=== PATIENT | female | born 1940 | race Caucasian/White ===

== ENCOUNTER 2022-02-10 09:17 | Outpatient (CLI) | payer MEDICARE, OTHER, SELFPAY ==
--- NOTE | 2022-02-10 09:15 | MR_ITS ---
[address] [address] Phone:?[phone] Fax:?[phone] Referring Physician Information: Gladis Gonsalves [address] [facility] [address] Phone:?[phone] Fax:?[phone] Patient:Rufino Jose D.O.B:?1940 Sex:?Female Phone:?[phone] [facility] MRN:?[id number] Exam Date:?02/10/2022 ? EXAM: MRI of the LEFT KNEE, without contrast CLINICAL: Female, 81 years old, with bilateral knee pain. INDICATION: Evaluate for osteoarthritis versus other knee derangement etiology. PRIOR SURGERY: None reported. PLAIN FILMS: None available. COMPARISONS: No prior MRIs available. An MRI of the contralateral right knee was also performed and reported separately on today's date. TECHNICAL: Using a 1.5 Dahiana MR scanner and a localizing surface coil: 3.0 mm?sagittals: PD, PDFS 3.0 mm?coronals: PD, STIR 3.0 mm?axials: PD, T2FS SEDATION: None. CONTRAST: None. IMPRESSION: 1. Complex tear and irregularity of the lateral meniscus anterior horn. 2. 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 3. Complex tear of the far posterior medial meniscus into posterior root with meniscal peripheral extrusion documenting decreased load-sharing function. 4. Mild medial compartment chondral thinning without full-thickness chondromalacia/defect or subjacent marrow edema. 5. Mucoid degeneration of the anterior cruciate ligament without full-thickness tear. 6. Mild patellofemoral osteoarthritis including incomplete thickness chondral thinning without subjacent reactive marrow edema. 7. Moderate knee effusion and large popliteal cyst. FINDINGS: Knee joint: Effusion: Moderate left knee effusion. Popliteal cyst: Large 6 x 3.5 x 2 slender popliteal cyst. Loose bodies: No convincing discrete larger loose bodies although smaller chondral debris would be difficult to exclude with certainty. Subcutaneous and extra-articular soft tissues: Unremarkable. Ligaments: ACL: Thickening and signal alteration along the length of the anterior cruciate ligament appears in keeping with mucoid degeneration, without convincing defined tear although not excluding the possibility of chronic residua of incomplete sprain injury. PCL: Intact PCL, without acute or chronic injury. MCL: Intact MCL superficial and deep layers, without injury. FCL: Intact FCL, without injury. Posterolateral corner: No posterolateral corner soft tissue injury. Popliteus, biceps femoris, iliotibial band, popliteofibular ligament and lateral gastrocnemius are intact. Posteromedial corner: No posteromedial corner soft tissue injury. Semimembranosus, pes anserine tendons and posterior oblique ligament are without injury, tendinopathy or bursitis. Extensor mechanism: Patellar tendon: Intact, without tendinopathy. Quadriceps tendon: Intact, without tendinopathy. Retinacula: Medial and lateral retinacula are intact. Fat pads: Unremarkable infrapatellar Hoffa's, quadriceps and prefemoral fat pads. Medial compartment: Medial meniscus: Marked attenuation and associated irregularity of the posterior horn of the lateral meniscus in keeping with complex tear and attenuation (sagittal images 9-15; coronal images 22-19). This includes marked attenuation of the posterior root with associated moderate 3 mm peripheral extrusion of the medial meniscus from the medial joint compartment documenting expected associated decreased meniscal load-sharing function (coronal image 17). Medial femoral condyle: Superficial grade II and perhaps more localized grade III chondromalacia/thinning and some irregularity of the central weight-bearing medial femoral condyle is accompanied by slight marginal osteophyte formation but without subjacent reactive marrow edema at this time. Medial tibial plateau: Also some chondral thinning of the posteromedial rim of the medial tibial plateau without subjacent reactive marrow edema. Lateral compartment: Lateral meniscus: Marked degeneration with complex tear and irregularity of the anterior horn of the lateral meniscus (sagittal images 25-16; coronal images 18- 13). Lateral femoral condyle: Smooth-margined chondral thinning of the posterolateral lateral femoral condyle is accompanied by mild marginal osteophyte formation, without subjacent reactive marrow edema. Lateral tibial plateau: Grade III-IV chondromalacia/thinning of the posterior into lateral aspect of rim of the lateral tibial plateau is accompanied by slight marginal osteophyte formation and slight subjacent reactive marrow edema. Patellofemoral joint: Patella: Broad-based grade II and perhaps more localized grade III chondromalacia/thinning with minor irregularity of articular cartilage of much of the patella is not associated with full-thickness chondromalacia/defect or subjacent reactive marrow edema. Trochlea: Also chondral thinning of the central to lateral aspect of the femoral trochlea, with slight marginal osteophyte formation but without subjacent reactive marrow edema. Proximal tibiofibular joint: Slight degenerative change with minimal subjacent marrow edema/subchondral cyst (sagittal PDFS series 6, images 24-26). Bones: No stress/occult fractures or other marrow edema/pathology. Neurovascular: Popliteal artery: No demonstrable popliteal artery entrapment or predisposing gastrocnemius variant. No aneurysm or pseudoaneurysm. Popliteal vein: No fusiform or saccular venous aneurysm. Anterior tibial artery: No aberrant high-origin anterior tibial artery. Tibial nerve: No entrapment or distal edema/swelling at the soleal sling. Popliteal nerve: No intrinsic or extrinsic mass or edema/swelling. Common peroneal nerve: Normal to fibular head and neck level included. F Electronically signed on 02/11/2022 12:02:00 PM by Manuel Sears M.D.
--- NOTE | 2022-02-10 09:15 | MR_ITS ---
[address] [address] Phone:?[phone] Fax:?[phone] Referring Physician Information: Gladis Gonsalves [address] [facility] [address] Phone:?[phone] Fax:?[phone] Patient:?Ashley Jose D.O.B:?1940 Sex:?Female Phone:?[phone] [facility] MRN:?[id number] Exam Date:?02/10/2022 ? EXAM: MRI of the RIGHT KNEE, without contrast CLINICAL: Female, 81 years old, with right knee pain. INDICATION: Evaluate for osteoarthritis versus other knee derangement etiology. PRIOR SURGERY: None reported. PLAIN FILMS: None available. COMPARISONS: No prior MRIs available. An MRI of the contralateral left knee was also performed and reported separately today's date. TECHNICAL: Using a 1.5 Dahiana MR scanner and a localizing surface coil: 3.0 mm?sagittals: PD, PDFS 3.0 mm?coronals: PD, STIR 3.0 mm?axials: PD, T2FS SEDATION: None. CONTRAST: None. IMPRESSION: 1. Complex tear/irregularity and marked peripheral extrusion of the medial meniscus. 2. Mild towards moderate medial compartment chondromalacia/osteoarthritis without subjacent marrow edema. 3. Complex degeneration and irregularity/tear of the lateral meniscus especially its anterior one-half with expected decreased meniscal load-sharing function. 4. Mild towards moderate lateral compartment chondromalacia/osteoarthritis without subjacent reactive marrow edema at this time. 5. Mild towards moderate patellofemoral chondromalacia/degenerative change, without subjacent reactive marrow edema. 6. Mucoid degeneration of the anterior cruciate ligament although not excluding residua of incomplete sprain injury, without complete tear. 7. Large knee effusion. FINDINGS: Knee joint: Effusion: Large right knee effusion. Popliteal cyst: None. Loose bodies: No convincing discrete larger loose bodies although smaller debris would be difficult to exclude with certainty. Subcutaneous and extra-articular soft tissues: Unremarkable. Ligaments: ACL: Abnormal increased signal intensity extends along the length of the anterior cruciate ligament appearing most in keeping with mucoid degeneration although not excluding the possibility of residua of incomplete sprain injury. No complete ACL tear. PCL: Intact PCL, without acute or chronic injury. MCL: Intact MCL superficial and deep layers, without injury. FCL: Intact FCL, without injury. Posterolateral corner: No posterolateral corner soft tissue injury. Popliteus, biceps femoris, iliotibial band, popliteofibular ligament and lateral gastrocnemius are intact. Posteromedial corner: No posteromedial corner soft tissue injury. Semimembranosus, pes anserine tendons and posterior oblique ligament are without injury, tendinopathy or bursitis. Extensor mechanism: Patellar tendon: Intact, without tendinopathy. Quadriceps tendon: Intact, without tendinopathy. Retinacula: Medial and lateral retinacula are intact. Fat pads: Unremarkable infrapatellar Hoffa's, quadriceps and prefemoral fat pads. Medial compartment: Medial meniscus: The posterior third towards one-half of the medial meniscus is associated with marked degeneration and deformity consistent with irregularity/tear as well as some attenuation which appears to be due to displacement of unstable meniscal flap into the inferior meniscosynovial recess at the anterior extent of this tear peripheral to its middle third (sagittal images 26-19; coronal images 23-19). This complex tear and attenuation of the medial meniscus posterior horn extends into the posterior meniscal root which, along with the appearance of marked 5 mm peripheral extrusion of the medial meniscus from the medial joint compartment is expected to be associated with decreased meniscal load-sharing function (coronal image 19). Medial femoral condyle: Grade II-III chondromalacia/thinning of the central to medial aspect of the medial femoral condyle is accompanied by mild towards moderate marginal osteophyte formation, but without subjacent reactive marrow edema at this time. Medial tibial plateau: Less prominent chondral thinning of the posteromedial rim of the medial tibial plateau, with slight marginal osteophyte formation, without subjacent reactive marrow edema. Lateral compartment: Lateral meniscus: Complex tear of apex and adjacent superior greater than inferior surfaces of the anterior one-half of the lateral meniscus (sagittal images 14-8; coronal images 19-14). Moderate 3 mm peripheral extrusion of the medial meniscus from the medial joint compartment (coronal image 19). Lateral femoral condyle: Chondral thinning of the anterolateral lateral femoral condyle associated with mild marginal osteophyte formation, without subjacent reactive marrow edema. Lateral tibial plateau: Grade II-III chondromalacia/thinning of the lateral rim of the lateral tibial plateau is not associated with subjacent reactive marrow edema. Patellofemoral joint: Patella: Broad-based grade II and more localized areas of grade III chondromalacia/thinning of much of patella, especially median ridge and medial facet greater than adjacent lateral facet, without convincing well-defined full- thickness chondromalacia/defect or subjacent reactive marrow edema. Trochlea: No chondromalacia or osteochondral abnormality. Proximal tibiofibular joint: Unremarkable, without evidence of ligament sprain injury, joint effusion or adjacent marrow edema. Bones: No stress/occult fractures or other marrow edema/pathology. Neurovascular: Popliteal artery: No demonstrable popliteal artery entrapment or predisposing gastrocnemius variant. No aneurysm or pseudoaneurysm. Popliteal vein: No fusiform or saccular venous aneurysm. Anterior tibial artery: No aberrant high-origin anterior tibial artery. Tibial nerve: No entrapment or distal edema/swelling at the soleal sling. Popliteal nerve: No intrinsic or extrinsic mass or edema/swelling. Common peroneal nerve: Normal to fibular head and neck level included. [facility] Electronically signed on 02/11/2022 12:19:00 PM by Manuel Sears M.D.
--- NOTE | 2022-02-10 10:00 | MR_ITS ---
[address] [address] Phone:?[phone] Fax:?[phone] Referring Physician Information: Gladis Gonsalves [address] [facility] [address] Phone:?[phone] Fax:?[phone] Patient:?Ashley Jose D.O.B:?1940 Sex:?Female Phone:?[phone] [facility] MRN:?[id number] Exam Date:?02/10/2022 ? EXAM: MRI of the RIGHT KNEE, without contrast CLINICAL: Female, 81 years old, with right knee pain. INDICATION: Evaluate for osteoarthritis versus other knee derangement etiology. PRIOR SURGERY: None reported. PLAIN FILMS: None available. COMPARISONS: No prior MRIs available. An MRI of the contralateral left knee was also performed and reported separately today's date. TECHNICAL: Using a 1.5 Dahiana MR scanner and a localizing surface coil: 3.0 mm?sagittals: PD, PDFS 3.0 mm?coronals: PD, STIR 3.0 mm?axials: PD, T2FS SEDATION: None. CONTRAST: None. IMPRESSION: 1. Complex tear/irregularity and marked peripheral extrusion of the medial meniscus. 2. Mild towards moderate medial compartment chondromalacia/osteoarthritis without subjacent marrow edema. 3. Complex degeneration and irregularity/tear of the lateral meniscus especially its anterior one-half with expected decreased meniscal load-sharing function. 4. Mild towards moderate lateral compartment chondromalacia/osteoarthritis without subjacent reactive marrow edema at this time. 5. Mild towards moderate patellofemoral chondromalacia/degenerative change, without subjacent reactive marrow edema. 6. Mucoid degeneration of the anterior cruciate ligament although not excluding residua of incomplete sprain injury, without complete tear. 7. Large knee effusion. FINDINGS: Knee joint: Effusion: Large right knee effusion. Popliteal cyst: None. Loose bodies: No convincing discrete larger loose bodies although smaller debris would be difficult to exclude with certainty. Subcutaneous and extra-articular soft tissues: Unremarkable. Ligaments: ACL: Abnormal increased signal intensity extends along the length of the anterior cruciate ligament appearing most in keeping with mucoid degeneration although not excluding the possibility of residua of incomplete sprain injury. No complete ACL tear. PCL: Intact PCL, without acute or chronic injury. MCL: Intact MCL superficial and deep layers, without injury. FCL: Intact FCL, without injury. Posterolateral corner: No posterolateral corner soft tissue injury. Popliteus, biceps femoris, iliotibial band, popliteofibular ligament and lateral gastrocnemius are intact. Posteromedial corner: No posteromedial corner soft tissue injury. Semimembranosus, pes anserine tendons and posterior oblique ligament are without injury, tendinopathy or bursitis. Extensor mechanism: Patellar tendon: Intact, without tendinopathy. Quadriceps tendon: Intact, without tendinopathy. Retinacula: Medial and lateral retinacula are intact. Fat pads: Unremarkable infrapatellar Hoffa's, quadriceps and prefemoral fat pads. Medial compartment: Medial meniscus: The posterior third towards one-half of the medial meniscus is associated with marked degeneration and deformity consistent with irregularity/tear as well as some attenuation which appears to be due to displacement of unstable meniscal flap into the inferior meniscosynovial recess at the anterior extent of this tear peripheral to its middle third (sagittal images 26-19; coronal images 23-19). This complex tear and attenuation of the medial meniscus posterior horn extends into the posterior meniscal root which, along with the appearance of marked 5 mm peripheral extrusion of the medial meniscus from the medial joint compartment is expected to be associated with decreased meniscal load-sharing function (coronal image 19). Medial femoral condyle: Grade II-III chondromalacia/thinning of the central to medial aspect of the medial femoral condyle is accompanied by mild towards moderate marginal osteophyte formation, but without subjacent reactive marrow edema at this time. Medial tibial plateau: Less prominent chondral thinning of the posteromedial rim of the medial tibial plateau, with slight marginal osteophyte formation, without subjacent reactive marrow edema. Lateral compartment: Lateral meniscus: Complex tear of apex and adjacent superior greater than inferior surfaces of the anterior one-half of the lateral meniscus (sagittal images 14-8; coronal images 19-14). Moderate 3 mm peripheral extrusion of the medial meniscus from the medial joint compartment (coronal image 19). Lateral femoral condyle: Chondral thinning of the anterolateral lateral femoral condyle associated with mild marginal osteophyte formation, without subjacent reactive marrow edema. Lateral tibial plateau: Grade II-III chondromalacia/thinning of the lateral rim of the lateral tibial plateau is not associated with subjacent reactive marrow edema. Patellofemoral joint: Patella: Broad-based grade II and more localized areas of grade III chondromalacia/thinning of much of patella, especially median ridge and medial facet greater than adjacent lateral facet, without convincing well-defined full- thickness chondromalacia/defect or subjacent reactive marrow edema. Trochlea: No chondromalacia or osteochondral abnormality. Proximal tibiofibular joint: Unremarkable, without evidence of ligament sprain injury, joint effusion or adjacent marrow edema. Bones: No stress/occult fractures or other marrow edema/pathology. Neurovascular: Popliteal artery: No demonstrable popliteal artery entrapment or predisposing gastrocnemius variant. No aneurysm or pseudoaneurysm. Popliteal vein: No fusiform or saccular venous aneurysm. Anterior tibial artery: No aberrant high-origin anterior tibial artery. Tibial nerve: No entrapment or distal edema/swelling at the soleal sling. Popliteal nerve: No intrinsic or extrinsic mass or edema/swelling. Common peroneal nerve: Normal to fibular head and neck level included. [facility] Electronically signed on 02/11/2022 12:19:00 PM by Manuel Sears M.D.
== END 2022-02-10 09:18 | disposition home or self-care (01) ==
PROVIDERS: PCP Family Medicine; Visit Provider Physician Assistant
DX: M25.561 Pain in right knee (principal); M25.562 Pain in left knee; M17.0 Bilateral primary osteoarthritis of knee; M23.242 Derangement of anterior horn of lateral meniscus due to old tear or injury, left knee; M94.262 Chondromalacia, left knee; M23.222 Derangement of posterior horn of medial meniscus due to old tear or injury, left knee; M25.462 Effusion, left knee; M25.461 Effusion, right knee; S83.241A Other tear of medial meniscus, current injury, right knee, initial encounter; M94.261 Chondromalacia, right knee; S83.511A Sprain of anterior cruciate ligament of right knee, initial encounter
CPT/HCPCS: 73721

== ENCOUNTER 2022-12-26 12:10 | Outpatient (CLI) | payer MEDICARE, OTHER, SELFPAY | END 2022-12-26 12:11 | disposition home or self-care (01) | LOC: RAD 12:11 → INJ CL 12:29 | PROVIDERS: PCP Family Medicine; Visit Provider Family Medicine | DX: M51.36 Other intervertebral disc degeneration, lumbar region (principal); M54.16 Radiculopathy, lumbar region | CPT/HCPCS: 62323; J0702; Q9966 ==

== ENCOUNTER 2023-02-06 12:25 | Outpatient (CLI) | payer MEDICARE, OTHER, SELFPAY | END 2023-02-06 12:26 | disposition home or self-care (01) | LOC: INJ CL 12:27 | PROVIDERS: PCP Family Medicine; Visit Provider Family Medicine | DX: M54.16 Radiculopathy, lumbar region (principal); M51.36 Other intervertebral disc degeneration, lumbar region | CPT/HCPCS: 64483; J1100; Q9966 ==

== ENCOUNTER 2024-05-13 07:47 | Outpatient (CLI) | payer MEDICARE, OTHER, SELFPAY ==
--- OUTSIDE RECORDS SUMMARY | 2024-05-13 07:50 | XMS_ITS ---
Author Organization [facility] Address [address] [place] [address] Care Team Providers Care Director Of Financial Aid Name Role Phone Unavailable Unavailable Unavailable Surgery Details Not on file Complications Check Surgery Details section. Procedure Estimated Blood Loss Check Surgery Details section. Procedure Findings Check Surgery Details section. Procedure Specimens Taken Check Surgery Details section.
--- OUTSIDE RECORDS SUMMARY | 2024-05-13 07:50 | XMS_ITS | Encounter Summary ---
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 [address] [place] [phone] Phone: tel: fax: [facility] Region Referral ID Status Reason Start Date Expiration Date V isits Requested Visits Authorized [id number] Authorized 03/21/2024 09/20/2025 1 1 Scheduling Instructions Dry eye and refraction Reason for Visit * Outpatient (Routine) - Closed Specialty Diagnoses / Procedures Referred By Donald moyer Referred To Contact Ophthalmology Erasmo Encinas M.D. [address], [place] [address] Phone: tel: fax: [facility] Region Referral ID Status Reason Start Date Expiration Date Visits Re quested Visits Authorized [id number] Closed 01/04/2024 07/05/2025 1 1 Encounter Details Date Type Department Care Team (Latest Contact Info) Description 03/21/2024 1:00 PM CDT Office Visit Department of Ophthalmology in [place], [place] [address] [place] [address] Erasmo Encinas M.D. [address], [place] [address] Kane Jones Jr., M.D. [address] [place] [address] Dry Eye Syndrome Bilateral (Primary Dx); Intraocular Lens Implant Status Post Social History Tobacco Use Types Packs/Day Years Used Date Smoking Tobacco: Never Smokeless Tobacco: Never [facility] Trapmineities Answer Date Recorded In the past 12 months has th e electric, gas, oil, or water company threatened to shut off services in your home? No 10/23/2023 Social Connection and Isolat ion Panel [NHANES] Answer Date Recorded In a typical week, how many times do you talk on the phone with family, friends, or neighbors? More than three times a week 04/29/2022 How often do you get togethe r with friends or relatives? More than three times a week 04/29/2022 How often do you attend [facility] ch or jewish services? More than 4 times per year 04/29/2022 Active Member of Clubs or Organizations Not on f ile 04/29/2022 How often do you attend meet ings of the clubs or organizations you belong to? More than 4 times per year 04/29/2022 Are you , , di vorced, , never , or living with a partner? 04/29/2022 AUDIT-C Answer Date Recorded Q1: How often do you have a drink containing alc ohol? Monthly or less 04/29/2022 Q2: How many drinks containi ng alcohol do you have on a typical day when you are drinking? 1 or 2 04/29/2022 Frequency of Binge Drinking Not on file 04/15 Overall Financial Resource Strain (CARDIA) Answe r Date Recorded How hard is it for you to pa y for the very basics like food, housing, medical care, and heating? Patient declined 12/30/2020 [facility] - Occupational Stress Questionnaire Answer Date Recorded Do you feel stress - tense, restless, nervous, or anxious, or unable to sleep at night because your mind is troubled all the time - these days? Not at all 04/29/2022 Exercise Vital Sign Answer Date Recorde d On average, how many days pe r week do you engage in moderate to strenuous exercise (like a brisk walk)? 2 days 10/23/2023 On average, how many minutes do you engage in exercise at this level? 30 min 10/23/2023 Hunger Vital Sign Answer Date Recorded Within the past 12 months, y ou worried that your food would run out before you got the money to buy more. Never true 10/23/19 24 Within the past 12 months, t he food you bought just didn't last and you didn't have money to get more. Never true 10/23/2023 PRAPARE - Transportation Answer Date Re corded In the past 12 months, has l ack of transportation kept you from medical appointments or from getting medications? No 03/2024 In the past 12 months, has l ack of transportation kept you from meetings, work, or from getting things needed for daily living? No 10/23/2023 Nutrition Answer Date Recorded Nutrition: EVOO Fat Source Yes 10/22 On average, how many serving s of fruits and vegetables do you eat per day (serving size is equal to 1 cup or approximately the size of a tennis ball)? 0-2 10/23/2023 Dental Answer Date Recorded Dental: Regular Dentist Yes 07/16/19 Employment Answer Date Recorded Employment status Retired 10/23/2023 Housing Stability Answer Date Recorded What is your living situation today? I have a [facility] place to live 10/23/2023 Education Answer Date Recorded What is the highest level of school you have completed or the highest degree you have received? 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 - 03/21/2024 1:00 PM CDT Ashley Jose was seen today for No chief complaint on file. 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 [address] [phone] Scheduled Referrals Name Type Priority Associated Diagnoses Order Schedule Ophthalmology office visit (clinic) Outpatient Referral Routine Expected: 06/20/2024, Expires: 06/20/2025 documented as of this encounter Visit Diagnoses Diagnosis Dry Eye Syndrome Bilateral- Primary Intraocular Lens Implant Status Post documented in this encounter
--- OUTSIDE RECORDS SUMMARY | 2024-05-13 07:50 | XMS_ITS | Clinical Summary ---
Author Organization [facility] Address [address] [place] [address] Care Team Providers Care Front Office Director Name Role Phone Unavailable Primary Care Provider Unavailabl e Source Comments Patient records contain information from all sites at [facility]. For routine questions regarding patient records, call [phone] during business hours, M-F 8:00 AM - 5:00 PM Central Time. Record requests for emergency care only can be directed to [phone] at any time.[facility] Allergies Active Allergy Reactions Criticality Noted Date Comments Codeine Other (see comments) 11/20/2006 Stomach spasms Medications * This document contains information received from the source organization and may not represent a complete record from that organization. polyethylene glycol 400 (BLINK GEL TEARS OPHT) Administer 1 drop into both eyes at bedtime. Active aspirin (Hester Aspirin) [address] tablet Take by mouth. Active calcium carbonate/vitam in D3 (CALCIUM 600 + D,3, ORAL) Take by mouth. Activ e docosahexaenoic acid/epa (FISH OIL ORAL) Take by mouth. Activ e atenoloL (TENORMIN) 50 mg tablet Take 1 tablet by mouth 2 (two) times a day. 1 Active esomeprazole (NexIUM) [address] capsule Take 1 capsule by mouth 2 (two) times a day. 3 Active cholecalciferol , vitamin D3, 25 mcg (1,000 unit) tablet,chewable 1,000 Units. A ctive flaxseed oiL oil 1 tablet po once daily 8 Active glucosamine-cho ndroitin (GLUCOSAMINE-CH ONDROITIN) 500-400 mg per capsule Take 1 capsule by mouth 2 (two) times a day. 3 Active hydroCHLOROthia zide (HYDRODIURIL) 25 mg tablet Take 2 tablets by mouth daily. 1 Active lisinopriL (PRINIVIL,ZESTR IL) 20 mg tablet Take 1 tablet by mouth 2 (two) times a day. 1 Active miscellaneous medical supply [facility] CPAP machine for home use at pressure 10cm/H2O, nasal mask x1/3month with nasal pillows x 2/mo 0 Active TURMERIC ORAL Take 1 tablet by mouth daily. Active vit C,G-Gw-kxhya-katerine tein-zeaxan (PreserVision AREDS-2) 250-90-40-1 mg per capsule Take 1 capsule by mouth 2 (two) times a day. Active lifitegrast (Xiidra) 5 % ophthalmic solution Administer 1 drop into both eyes 2 (two) times a day. 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 Kane Jones Jr., M.D. Dry Eye Syndrome Bilateral (Primary Dx); Intraocular Lens Implant Status Post from Last 3 Months Immunizations Name Administration Dates Next Due H1N1 All Forms 07/29/2009 HZV (ZOSTAVAX) 01/30/2007 Influenza, Unspecified 04/20/2009,2007,05/07/2007,06/05/2006, 5,05/11/2004,05/06/2003 PPSV23 05/11/2004 Td (Adult), adsorbed 04/09/2008 Social History Tobacco Use Types Packs/Day Years Used Date Smoking Tobacco: Never Smokeless Tobacco: Never [facility] Utilities Answer Date Recorded In the past 12 [...] week 04/29/2022 How often do you attend chur ch or restoration services? More than 4 times per year [...] medical care, and heating? Patient declined 12/30/2020 [facility] - Occupational Stress Questionnaire Answer Date Recorded [...] your living situation today? I have a [facility] place to live 10/23/2023 Education Answer Date Recorded What is the highest level of school you have completed or the highest degree you have received? Some college, no degree 12/30/2020 Comments No Sex and Gender Information Value Date Recorded Sex Assigned at Female 04/29/2022 11:09 AM CDT Legal Sex Female 9:08 AM STEWARD RACETRACK Gender Identity Female 04/29/2022 11:09 AM CDT Sexual Orientation Not on file Last Filed Vital Signs Vital Sign Reading Time Taken Comments Blood Pressure 130/80 06/01/2021 2:26 PM STEWARD RACETRACK Pulse - - Temperature - - Respiratory Rate - - Oxygen Saturation - - Inhaled Oxygen Concentration - - Weight 80.4 kg (177 lb 5.8 oz) 06/01/2021 2:26 P M STEWARD RACETRACK Height 160 cm (5' 3) 12/30/2020 9:13 AM CDT Body Mass Index 31.42 12/30/2020 9:13 AM CDT Plan of Treatment Upcoming Encounters Date Type Department Care Team (Late st Contact Info) Description 06/17/2024 11:15 AM STEWARD RACETRACK Office Visit Department of Ophthalmology in [place], [place] [address] [place] [address] Kane Jones Jr., M.D. [address] [place] [phone] Health Maintenance Due Date Last Done Comments Office Visit for Blood Pressure Check / Re-check 1942 RSV vaccine - (32-36 weeks) or 60+ years (1 - 1-dose 75+ series) 2017 DTaP,Tdap,and Td Vaccines (2 - Td or Tdap) 04/23/2022 04/23/2012, 04/09/2008 Depression Screening (Annual PHQ-2) 07/16/2023 Fall Risk Screen (Annual) 07/16/2023 COVID-19 Vaccine ( season) 2024 05/17/2022, 10/25/2021, 04/19/2021, Additional history exists Influenza Vaccine (#1) 2024 , 05/05/2022, 04/07/2021, Additional history exists Creatinine Level (Kidney Function Test) 09/19/2024 09/20/2023, 08/17/2023, 06/11/2023, Additional history exists Potassium Level 09/19/2024 09/20/2023, 020 08/2023, 06/11/2023, Additional history exists Sodium Level 09/19/2024 09/20/2023, 02/0 08/2023, 06/11/2023, Additional history exists Zoster Vaccines Completed 01/02/2019, 040 11/2018, 01/30/2007 Pneumococcal vaccine (65+ years) Completed 11/03/2021, 07/26/2015, 05/11/2004, Additional history exists HPV Vaccines Aged Out No longer eligi ble based on patient's age to complete this topic Insurance ([place]) [id number] [address] [id number] MEDICARE [facility]
--- OUTSIDE RECORDS SUMMARY | 2024-05-13 07:50 | XMS_ITS | Encounter Summary ---
Author Organization [facility] Address [address] [place] [address] Care Team Providers Care Parks And Recreation Worker Name Role Phone Unavailable Primary Care Provider Unavailabl e Encounter Details Date Type Department Care Team (Late st Contact Info) Description 02/05/2024 Orders Only Department of Ophthalmology in [place], [place] [address] [address] Kane Jones Jr., M.D. [address], [place] [address] Social History Tobacco Use Types Packs/Day Years Used Date Smoking Tobacco: Never Smokeless Tobacco: Never C Utilities Answer Date Recorded In the past 12 months has e electric, gas, oil, or water company [...] often do you attend chur ch or rastafari services? More than 4 times per year [...] medical care, and heating? Patient declined 12/30/2020 [facility] - Occupational Stress [...] your living situation today? I have a [facility] place to live 10/23/2023 Education Answer Date Recorded What is the highest level of school you have completed or the highest degree you have received? Some college, no degree 12/30/2020 Comments No Sex and Gender Information Value Date Recorded Sex Assigned at Female 04/29/2022 11:09 AM CDT Legal Sex Female 9:08 AM COOKER OPERATOR Gender Identity Female 04/29/2022 11:09 AM CDT Sexual Orientation Not on file documented as of this encounter Plan of Treatment Upcoming Encounters Date Type Department Care Team (Late st Contact Info) Description 06/17/2024 11:15 AM COOKER OPERATOR Office Visit Department of Ophthalmology in [place], [place] [address] [phone] Kane Jones Jr., M.D. [address] [place] [phone] documented as of this encounter Visit Diagnoses Not on filedocumented in this encounter
--- OUTSIDE RECORDS SUMMARY | 2024-05-13 07:50 | XMS_ITS | Continuity of Care Document ---
Author Organization [facility] Address [address] [place] [address] Phone Care Team Providers Care Asthma Educator Name Role Phone Dianne MOYA, PhD, Tomas Unavailable Unavai lable Allergies, Adverse Reactions, Alerts Substance Reaction Status Criticality codeine Active No Information Medications Medication Instructions Dosage Effective Dates (start - stop) Status Comments ATENOLOL (unknown strength) Not Available - Active AMILORIDE HCL (unknown strength) Not Available - Active ESOMEPRAZOLE MAGNESIUM (unknown strength) Not Available - Active LISINOPRIL (unknown strength) Not Available - Active XIIDRA (unknown strength) Not Available - Active Procedures Procedure Date Postop Followup Visit Lami, Facetectomy/Foraminotomy, Lumbar ( Stenosis) Lami, Facetectomy/Foraminotomy - Additio nal Level(s) - MI Lami, Facetectomy/Foraminotomy, Lumbar ( Stenosis) Lami, Facetectomy/Foraminotomy - Additio nal Level(s) Office/Outpatient Visit,[facility] 2022 Advance Directives Directive Yes / No Effective Date File Name No Information Encounters Encounter Description Practice Location Reason(s) For Visit Diagnoses Date Provider Providers Copied on Encounter [facility], [address], [place], [id number], [place] tel:[phone] [facility] No Information 4 Dianne Marin. [facility], [address] [facility] [address], [place], [address], [place]. tel:[phone] [facility], [address], [place], [place], [id number], [place] tel:[phone] [facility] [place] Spinal stenosis, lumbar region with neurogenic claudication 3 Dianne Marin. [facility], [address], [place], [address], [place]. [phone] Referring Provider: [facility], [place], [address]. tel:[phone] [facility], [address], [place], [place], [id number], [place] tel:[phone] [facility] No Information Sep-2 3 Kaleb Alexis. [facility], [address], [place], [place], [id number] , [place]. [phone] Referring Provider: Luis [facility], [place], [address]. tel:[phone] [facility], [address], [place], [place], [id number], [place] tel:[phone] [facility] No Information Sep-2 3 Dianne Marin. [facility], [address], [place], [address], [place]. tel:[phone] Referring Provider: Landon Moran [employer] Alexsandra Mo , [place], [address]. tel:[phone] Office/Outpat ient Visit,[place], [place] [facility], [address], [place], [place], [id number], [place] tel:[phone] [facility] [place] Spinal stenosis, lumbar region with neurogenic claudication 3 Kaleb Alexis. [facility], [address], [place], [place], [id number] , [place]. tel:[phone] Referring Provider: Luis Moran[address], [place], [address]. tel:[phone] Family History Family Member Type Diagnosis Age At Onset No Information Payers Payer name Insurance type Covered democrat ID Ricky duque(s) Medicare MB [id number] [facility] [id number] Social History Type Description Quantity Date Captured Comments Sex Female Smoking Status No Information Chief Complaint And Reason For Visit No Information Reason For Referral Reason For Referral No Information History Of Present Illness Encounter Date Complaint History Of Prese nt Illness No Information Functional Status Date Functional Assessmen t No Information Instructions Date Instruction Additional Infor mation No Information Assessments Type Assessment Date No Information Patient Care Teams Name Effective Dates (start - stop) Status Members No Information
--- OUTSIDE RECORDS SUMMARY | 2024-05-13 07:50 | XMS_ITS | Clinical Summary ---
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 0 Active FLAXSEED OIL As directed 1 Tablet once daily. 0 08/12/2007 Active glucosamine-chondr oitin, 500-400 mg, (COSAMIN DS 500/400) 500-400 mg cap Take 1 capsule by mouth 2 times daily. 1 capsule 0 11/05/2012 Active Cholecalciferol, Vitamin D3, (VITAMIN D-3) 1,000 unit chew Chew 1,000 units by mouth once daily. Active TURMERIC ORAL Take 1 Tablet by mouth once daily. Active lifitegrast (Xiidra) 5 % dpet Place 1 Drop into both eyes once daily. 03/28/2017 Active vitamins A,C,I-gdrq-rxmmmp (ICaps AREDS) 7,160-113-100 ipfc-al-mzek TbEC Take 2 Tablets by mouth once daily. 0 05/12/2021 Active acetaminophen (TYLENOL EXTRA STRGTH) 500 mg tabletIndications: Spinal stenosis, lumbar region, with neurogenic claudication Take 1-2 Tablets (500-1,000 mg) by mouth every 6 hours if needed for Pain. Max acetaminophen dose: 4000mg in 24 hrs. 40 Tablet 04/07/2023 Active ibuprofen (ADVIL; MOTRIN) 600 mg tabletIndications: Spinal stenosis, lumbar region, with neurogenic claudication Take 1 Tablet (600 mg) by mouth every 6 hours if needed for Pain. Maximum of 3200 mg in 24 hours. 25 Tablet 04/07/2023 Active CPAPIndications:OS A (obstructive sleep apnea) CPAP machine for home use at pressure 10cm/H2O, nasal mask x1/3month with nasal pillows x 2/mo 1 Each 11 08/21/2023 Active atenoloL (TENORMIN) 50 mg tabletIndications: Essential hypertension Take 1 Tablet (50 mg) by mouth two times daily. 180 Tablet 4 08/23/2023 Active hydroCHLOROthiazid e (HCTZ) 25 mg tabletIndications: Essential hypertension Take 2 Tablets (50 mg) by mouth once daily. 180 Tablet 3 08/23/2023 Active lisinopriL (PRINIVIL; ZESTRIL) 20 mg tabletIndications: HTN (hypertension) Take 1 Tablet (20 mg) by mouth two times daily. 180 Tablet 3 08/23/2023 Active spironolactone (ALDACTONE) 25 mg tabletIndications: HTN (hypertension) Take 1 Tablet (25 mg) by mouth every morning. 90 Tablet 3 08/23/2023 Active esomeprazole (NEXIUM) 40 mg capsuleIndications :Chronic GERD Take 1 Capsule (40 mg) by mouth once daily. 90 Capsule 3 09/04/2023 Active Hospital, Clinic, or Other Facility Administered Medication Ordered Dose Route Frequency Start Date End Date Status betamethasone acet,sod phos 6 mg injection (CELESTONE SOLUSPAN)Indications:Prima ry osteoarthritis of left knee,Primary osteoarthritis of right knee,Tripathi's cyst of knee, left 6 mg IArtic ONE TIME 04/23/2024 04/23/2024 Ended betamethasone acet,sod phos 6 mg injection (CELESTONE SOLUSPAN)Indications:Prima ry osteoarthritis of left knee,Primary osteoarthritis of right knee,Tripathi's cyst of knee, left 6 mg IArtic ONE TIME 04/23/2024 04/23/2024 Ended Active Problems Problem Noted Date Diagnosed Date Temporal arteritis 08/25/2023 Spinal stenosis, lumbar duyen on, with neurogenic claudication 04/05/2023 Bilateral primary osteoarthritis of knee 023 Bilateral foot pain 04/04/2023 Greater trochanteric bursitis of right hip 04/04 Osteoarthritis of right hip 04/04/2023 Sciatica 04/04/2023 Spondylosis of lumbar spine 04/04/2023 Insomnia 05/02/2022 Malignant neoplasm of female breast 05/02/2022 Obstructive sleep apnea syndrome 06/16/2020 TRIP 12/12/2012 AHI- 99 06/16/2020 Polyp of colon 12/17/2014 Personal history of malignant neoplasm of breast 03/27/2007 Gastroesophageal reflux disease 06/26/2006 Primary hypertension 06/26/2006 History of colon polyps Thyroid nodule Resolved Problems Problem Noted Date Diagnosed Date Resolved Date Routine general medical exam ination at a health care facility 06/17/2015 04/04/2023 Irritable bowel syndrome 06/26/2006 Encounters Date Type Department Care Team Description 05/09/2024 Travel 04/23/2024 8:35 AM CDT Procedure Only [facility] [address] [address] Kendrick Phan MD Procedure (US guided bilateral knee bakers... 04/23/2024 Travel 04/18/2024 Travel 04/09/2024 10:06 AM CDT - 04/09/2024 11:59 PM CDT Hospital Encounter [address] [address] Kendrick Phan MD Stenosis of lateral recess of lumbar spine; Lumbar radiculopathy; History of lumbar laminectomy for decompression 04/09/2024 Travel 04/07/2024 Telephone [facility] [address] [address] Kendrick Phan MD Appointment Request 03/28/2024 Telephone [facility] [address] [place] [address] Kendrick Phan MD Results 03/26/2024 12:00 PM CDT Ancillary Procedure [facility] [address] [place] [address] 03/26/2024 11:45 AM CDT Ancillary Procedure [facility] [address] [place] [address] 03/26/2024 10:40 AM CDT Office Visit [facility] [address] [place] [address] Kendrick Phan MD Musculoskeletal Problem (Follow up back pain, discuss injections) 03/26/2024 Travel 03/22/2024 Travel 03/18/2024 Telephone [facility] [address] [place] [address] Kendrick Phan MD Appointment Request (MID BACK PAIN - SEVERE) from Last 3 Months Immunizations Name Administration Dates Next Due COVID-19 vaccine (Innovashop.tv 30mcg/0.3mL) AISLINN CORDOVA 04/19/2021,09/14/2020,08/24/2020 Hepatitis A (Adult) 07/04/2000,11/25/1999 Hepatitis B (Adult) 07/04/2000,12/26/1999,1999 Influenza A (H1N1), Inactiva reyna (Age >=3 Years) 07/29/2009 Influenza, High-dose Inactivated 020,04/26/2019,03/21/2018,2016,05/08/2016,05/13/2015 Influenza, High-dose Quadriv alent Inactivated 04/30/2023 Influenza, IIV3 (Age >=3 years) 05/02/20 13,04/05/2012,05/23/2011,2009,04/20/2009,05/13/2008,05/07/2007 Influenza, IIV4 04/01/2014 Influenza, Inactivated AIIV4 (Age 65+ Years) Preserv Free 05/05/2022,04/07/2021 Pneumococcal Poly,23-Valent (Pneumovax) 11/03/2021,05/11/2004,02/17/1995 Pneumococcal conj 13-Valent (Prevnar 13) 07/26/2015 Td (Age >=7 Years) 04/15/1998 Td, Preservative Free (age > = 7 Years) 04/09/2008 Tdap 04/23/2012 Zoster (Shingrix-RZV, recombinant) 01/02/2019, Zoster (Zostavax-ZVL, live) 01/30/2007 Family History Medical History Relation Name Comments Heart Disease Father Other Father ATHEROSCLEROTIC CORONARY VASCULAR DISEASE Other Mother ALZHEIMERS Diabetes Other 1 GRANDMOTHER Cancer Other 2 stomach grandfa ther Cancer Other 3 LUNG grandmothe r Asthma Other 4 COUSIN Psychiatric illness Other 5 AUNT DEP RESSION Cancer-breast No Family History Relation Name Status Comments Father Mother Other 1 Other 2 Other 3 Other 4 Other 5 Social History Tobacco Use Types Packs/Day Years Used Date Smoking Tobacco: Never Passive Smoke Exposure: Past Smokeless Tobacco: Never Tobacco Cessation:Counseling Given: Yes Alcohol Use Standard Drinks/Week Comments Yes 0 (1 standard drink = 0.6 oz pur e alcohol) OCCASIONALLY PHQ-2 Answer Date Recorded PHQ-2 TOTAL SCORE 0 08/23/2023 Social Connections Answer Date Recorded Frequency of Communication with Friends and Fami ly 0 11/03/2021 Financial Resource Strain Answer Date R ecorded Difficulty of Paying Living Expenses 3 11/03/2021 Difficulty of Paying Living Expenses Not on file 11/03/2021 Food Insecurity Answer Date Recorded Worried About Running Out of Food in the Last Ye ar 1 11/03/2021 Transportation Needs Answer Date Record ed Lack of Transportation (Medical) 1 11/03/2021 Housing Stability Answer Date Recorded Unable to Pay for Housing in the Last Year 1 11/03/2021 Sex and Gender Information Value Date Recorded Sex Assigned at Not on file Gender Identity Not on file Sexual Orientation Not on file Travel History Travel Start Travel End [place] 05/03/2024 05/03/2024 Obstetrics History Para Term AB IAB SAB Ectopic Multiple Livin g Live Births 2 2 2 Date Outcome GA Total Labor Labor/2nd/3rd Weight Sex Type Anes PTL Nahomi A1 A5 Name Clin Para Para Comments csections Last Filed Vital Signs Vital Sign Reading Time Taken Comments Blood Pressure 106/71 04/23/2024 8:42 AM CDT Pulse 67 04/23/2024 8:42 AM CDT Temperature 36.4 ??C (97.6 ??F) 04/23/2024 8:42 AM CD T Respiratory Rate 16 09/20/2023 8:55 AM 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 Oxygen Saturation 98% 04/23/2024 8:42 AM CDT Inhaled Oxygen Concentration - - Weight 83.3 kg (183 lb 11.2 oz) 08/23/2023 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 Height 159.5 cm (5' 2.8) 08/23/2023 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 Body Mass Index 32.75 08/23/2023 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 Plan of Treatment Upcoming Encounters Date Type Department Care Team (Late st Contact Info) Description 05/13/2024 8:20 AM CDT Office Visit [facility] [address] [place] [id number] Kendrick Phan MD [address] [place] [address] Health Maintenance Due Date Last Done Comments RSV vaccine for adults or (1 - 1-dose 75+ series) 2017 Tetanus booster 04/23/2022 04/23/2012, 03/17, 04/15/1998 COVID-19 vaccine series ( season) 2024 05/14/2023, 05/17/2022, 10/25/2021, Additional history exists Influenza for age 65+ 03/16/2024 04/30/2023 , 05/05/2022, 04/07/2021, Additional history exists BMI (ht and wt on same day) for age 18+ 08/23/2024 08/23/2023, 08/21/2023, 04/04/2023, Additional history exists Depression screening for age 12+ 08/23/2024 08/23/2023, 08/22/2022, 08/18/2021, Additional history exists Medicare Wellness for age 65+ 08/23/2024, 08/22/2022, 08/18/2021, Additional history exists Tdap Completed 04/23/2012 DEXA/DXA scan for age 65+ Completed 2016, 05/24/2011, 06/10/2007 Zoster (shingles) series for age 50+ Completed 01/02/2019, 10/18/2018, 01/30/2007 Pneumococcal series for age 65+ Completed 11/03/2021, 07/26/2015, 05/11/2004, Additional history exists Medical Devices Implanted Type Area Bass Singer Device Identifier Shelf Expiration Date Model / Serial / Lot Dura Neuro 1xin Duragen Plusnon-Sut - [id number] Implanted:Qty: 1 on 04/05/2023 by Tomas Dean MD at [facility] [place] Right: Spine Integra [employer] Michael 12/13/2025 DP-1011 / / [id number] Dura Neuro 5ml Duraseal - [id number] Implanted:Qty: 1 on 04/05/2023 by Tomas Dean MD at [facility] [place] Right: Spine Integra [employer] Michael 05/15/2024-2049 / / [id number] Procedures Procedure Name Priority Date/Time Associated Diagnosis Comments BEDSIDE US STUDY ARCHIVE Routine 04/23/2024 10:44 AM CDT Primary osteoarthritis of left knee Primary osteoarthritis of right knee Tripathi's cyst of knee, left MR SPINE LUMBAR WWO Routine 04/09/2024 11:10 AM CDT Stenosis of lateral recess of lumbar spine Lumbar radiculopathy History of lumbar laminectomy for decompression XR HIP 1 VIEW W PELVIS LEFT Routine 03/26/2024 11:57 AM CDT Lumbosacral radiculopathy at L5 Stenosis of lateral recess of lumbar spine Hip pain, left XR SPINE LUMBAR 2 VIEWS Routine 03/26/2024 11:56 AM CDT Lumbosacral radiculopathy at L5 Stenosis of lateral recess of lumbar spine Hip pain, left XR DXA BONE DENSITY 2 SITES AXIAL Routine 08/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 Kendrick Phan. Ultrasound was not used for diagnostic purposes, but to guide the needle placement and document the position of the injection. ?? See patient's EPIC encounter for the detail of the procedure; see GURJIT for saved images of the injection. Kendrick Phan MD PROCEDURE ORD * MR SPINE LUMBAR WWO (04/09/2024 11:10 AM CDT) Anatomical Region Laterality Modality Spine, LUMBAR SPINE Magnetic Res onance 04/09/2024 2:06 PM CDT Impressions 04/09/2024 2:06 PM CDT 1. Normal alignment. No fractures. 2. Interval postop changes of right hemilaminectomies at L4-5 and L5-S1. Edema and enhancing granulation tissue within the posterior soft tissues 3. Lumbar spondylosis 4. At L1-2, right paracentral disc protrusion. Mild narrowing of the spinal canal and bilateral neural foramina 5. At L2-3, mild narrowing of the spinal canal and bilateral neural foramina 6. At L3-4, mild narrowing of the spinal canal. Moderate narrowing of the left neural foramen. 7. At L4-5, moderate narrowing of the spinal canal. Right subarticular disc extrusion. Impingement of the traversing right L5 nerve root. Moderate narrowing of the bilateral neural foramina Dictated by David Estes MD @ 04/09/2024 2:06:23 PM (Electronically Signed) Narrative 04/09/2024 2:06 PM CDT For Patients: ??As a result of the Cures Act, medical imaging exams and procedure reports are released immediately into your electronic medical record. ??You may view this report before your referring provider. ??If you have questions, please contact your health care provider. INDICATION: Lumbar radiculopathy. COMPARISON: 01/24/2023. TECHNIQUE: Sagittal T1, T2, and STIR sequences. Axial T1 and T2 weighted sequences.. Post gadolinium T1 weighted sequences. FINDINGS: Normal vertebral body alignment. No fractures. No vertebral body loss of height. No spondylolisthesis. Since the previous exam, interval postop changes of right hemilaminectomies at L4-5 and L5-S1. Edema and enhancing granulation tissue within the posterior soft tissues of the operative bed extending into the right dorsal and lateral epidural space. Lumbar spondylosis with multilevel disc degeneration. Multilevel facet arthropathy. T12-L1: Disc degeneration and posterior disc bulge. No narrowing of spinal canal. No neural foraminal narrowing. L1-2: Disc degeneration. Diffuse disc bulge. Superimposed right paracentral disc protrusion measures approximately 3 mm short axis. Mild narrowing of spinal canal. Mild narrowing of bilateral foramina. Mild facet arthropathy. L2-3: Disc degeneration and posterior disc bulge. Mild narrowing of spinal canal. Mild narrowing of bilateral foramina. Mild os arthropathy. L3-4: Disc generation posted disc bulge. Flattening of ventral thecal sac and mild narrowing of spinal canal. Moderate narrowing of the left neural foramen. No narrowing of the right neural foramen. Mild facet arthropathy. L4-5: Disc degeneration. Diffuse disc bulge. Superimposed right subarticular disc extrusion measures approximately 6 mm in diameter with 5 mm of caudal migration. Moderate narrowing of spinal canal. Impingement of the traversing right L5 nerve root. Moderate narrowing of bilateral foramina. Mild facet arthropathy. L5-S1: Disc degeneration. Diffuse disc bulge eccentric to the right. No narrowing of spinal canal. No impingement of the traversing S1 nerve roots. Mild narrowing of bilateral foramina. Normal visualized SI joints. Procedure Note David Estes MD, PhD - 04/09/2024 For Patients: As a result of the Century Cures Act, medical imagingexams and procedure reports are released immediately into your electronicmedical record. You may view this report before your referring provider.If you have questions, please contact your health care provider. INDICATION: Lumbar radiculopathy. COMPARISON: 01/24/2023. TECHNIQUE: Sagittal T1, T2, and STIR sequences. Axial T1 and T2 weighted sequences..Post gadolinium T1 weighted sequences. FINDINGS: Normal vertebral body alignment. No fractures. No vertebral body loss ofheight. No spondylolisthesis. Since the previous exam, interval postop changes of righthemilaminectomies at L4-5 and L5-S1. Edema and enhancing granulationtissue within the posterior soft tissues of the operative bed extendinginto the right dorsal and lateral epidural space. Lumbar spondylosis with multilevel disc degeneration. Multilevel facetarthropathy. T12-L1: Disc degeneration and posterior disc bulge. No narrowing of spinalcanal. No neural foraminal narrowing. L1-2: Disc degeneration. Diffuse disc bulge. Superimposed rightparacentral disc protrusion measures approximately 3 mm short axis. Mildnarrowing of spinal canal. Mild narrowing of bilateral foramina. Mildfacet arthropathy. L2-3: Disc degeneration and posterior disc bulge. Mild narrowing of spinalcanal. Mild narrowing of bilateral foramina. Mild os arthropathy. L3-4: Disc generation posted disc bulge. Flattening of ventral thecal sacand mild narrowing of spinal canal. Moderate narrowing of the left neuralforamen. No narrowing of the right neural foramen. Mild facetarthropathy. L4-5: Disc degeneration. Diffuse disc bulge. Superimposed rightsubarticular disc extrusion measures approximately 6 mm in diameter with 5mm of caudal migration. Moderate narrowing of spinal canal. Impingement ofthe traversing right L5 nerve root. Moderate narrowing of bilateralforamina. Mild facet arthropathy. L5-S1: Disc degeneration. Diffuse disc bulge eccentric to the right. Nonarrowing of spinal canal. No impingement of the traversing S1 nerveroots. Mild narrowing of bilateral foramina. Normal visualized SI joints. IMPRESSION: 1. Normal alignment. No fractures. 2. Interval postop changes of right hemilaminectomies at L4-5 and L5-S1.Edema and enhancing granulation tissue within the posterior soft tissues 3. Lumbar spondylosis 4. At L1-2, right paracentral disc protrusion. Mild narrowing of thespinal canal and bilateral neural foramina 5. At L2-3, mild narrowing of the spinal canal and bilateral neuralforamina 6. At L3-4, mild narrowing of the spinal canal. Moderate narrowing of theleft neural foramen. 7. At L4-5, moderate narrowing of the spinal canal. Right subarticulardisc extrusion. Impingement of the traversing right L5 nerve root.Moderate narrowing of the bilateral neural foramina Dictated by David Estes MD @ 04/09/2024 2:06:23 PM (Electronically Signed) Kendrick Phan MD MR * XR HIP 1 VIEW W PELVIS LEFT (03/26/2024 11:57 AM CDT) Anatomical Region Laterality Modality HIPS, HIPL, Pelvis Computed Radi ography 03/26/2024 2:30 PM CDT Narrative 03/26/2024 2:30 PM CDT For Patients: ??As a result of the Cures Act, medical imaging exams and procedure reports are released immediately into your electronic medical record. ??You may view this report before your referring provider. ??If you have questions, please contact your health care provider. Indication: Left hip pain Technique: AP pelvis and lateral view left hip Comparison: 12/08/2022 Findings: Hypertrophic spurring at both hips. Spurring at the iliac crests and greater trochanters. Chronic soft tissue density about the medial left hip. Impression: Moderate degenerative joint disease left hip, not significantly changed. Dictated by Michel Moss MD @ 03/26/2024 2:30:44 PM (Electronically Signed) Procedure Note Michel Moss MD - 03/26/2024 For Patients: As a result of the s , medical imagingexams and procedure reports are released immediately into your electronicmedical record. You may view this report before your referring provider.If you have questions, please contact your health care provider. Indication: Left hip pain Technique: AP pelvis and lateral view left hip Comparison: 12/08/2022 Findings: Hypertrophic spurring at both hips. Spurring at the iliac crests andgreater trochanters. Chronic soft tissue density about the medial lefthip. Impression: Moderate degenerative joint disease left hip, not significantly changed. Dictated by Michel Moss MD @ 03/26/2024 2:30:44 PM (Electronically Signed) Kendrick Phan MD GENERAL IMAGING * XR SPINE LUMBAR 2 VIEWS (03/26/2024 11:56 AM CDT) Anatomical Region Laterality Modality LUMBAR SPINE Computed Radiogr aphy 03/26/2024 2:29 PM CDT Impressions 03/26/2024 2:29 PM CDT Multilevel degenerative disc disease similar to the prior study. Lower lumbar spine facet degeneration. Dictated by Michel Moss MD @ 03/26/2024 2:29:28 PM (Electronically Signed) Narrative 03/26/2024 2:29 PM CDT For Patients: ??As a result of the s Act, medical imaging exams and procedure reports are released immediately into your electronic medical record. ??You may view this report before your referring provider. ??If you have questions, please contact your health care provider. INDICATION: Lumbosacral radiculopathy TECHNIQUE: 2-view lumbar spine. COMPARISON: 12/21/2022 FINDINGS: Rightward curvature lumbar spine. Degenerative spurring at both hips. Vascular calcifications. Disc space narrowing and spurring throughout the lumbar spine. Facet degeneration L5-S1. No spondylolisthesis. No fracture. Procedure Note Michel Moss MD - 03/26/2024 For Patients: As a result of the Cures Act, medical imagingexams and procedure reports are released immediately into your electronicmedical record. You may view this report before your referring provider.If you have questions, please contact your health care provider. INDICATION: Lumbosacral radiculopathy TECHNIQUE: 2-view lumbar spine. COMPARISON: 12/21/2022 FINDINGS: Rightward curvature lumbar spine. Degenerative spurring at both hips.Vascular calcifications. Disc space narrowing and spurring throughout thelumbar spine. Facet degeneration L5-S1. No spondylolisthesis. No fracture. IMPRESSION: Multilevel degenerative disc disease similar to the prior study. Lowerlumbar spine facet degeneration. 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 Healthcare Directive 12/21/2020 3:16 PM 12-21 POLST 08/14/2018 10:40 AM 08/13/18 Healthcare Directive 04/08/2013 12:00 AM A DVANCE DIRECTIVE Healthcare Directive 02/04/2013 9:09 AM HE ALTH CARE DIRECTIVE, 02/04/2013 * Full Code (Latest Code Status on File) Date Activated Date Inactivated Comments 04/06/2023 9:15 AM 04/07/2023 4:17 PM Question Answer Comments Code Status Discussion: Reviewed Preferences * Full Code Date Activated Date Inactivated Comments 04/05/2023 3:56 PM 04/06/2023 9:15 AM Question Answer Comments Code Status Discussion: Unable to Assess Preferences, Provider to review later * Full Code Date Activated Date Inactivated Comments 01/10/2022 8:26 AM 01/10/2022 1:26 PM Question Answer Comments Code Status Discussion: Discussed * Full Code Date Activated Date Inactivated Comments 03/25/2021 1:47 PM 03/26/2021 1:35 PM Question Answer Comments Code Status Discussion: Discussed 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
--- OUTSIDE RECORDS SUMMARY | 2024-05-13 07:50 | XMS_ITS | Encounter Summary ---
Author Organization [facility] Address [address] [place] [address] Care Team Providers Care Miller Rod Mill Name Role Phone Unavailable Primary Care Provider Unavailabl e Reason for Visit * Reason Onset Date Comments Follow-up Orders 02/05/2024 F/u reschedule and questions Encounter Details Date Type Department Care Team (Latest Contact Info) Description 02/05/2024 Clinical Communication Department of Ophthalmology in [place], [place] [address] [phone] Erasmo Encinas M.D. [address] [address] Follow-up Orders (F/u reschedule and questions ) Social History Tobacco Use Types Packs/Day Years Used Date Smoking Tobacco: Never Smokeless Tobacco: Never [employer] Utilities Answer Date Recorded In the past 12 months has th [employer] electric, gas, oil, or water company threatened [...] week 04/29/2022 How often do you attend formerly [facility] or yarsani services? More than 4 times per year [...] medical care, and heating? Patient declined [facility] - Occupational Stress Questionnaire Answer Date Recorded [...] Date Recorded Nutrition: EVOO Fat Source Yes 04/09 /2024 On average, how many serving s of fruits and vegetables do you eat per day (serving size is equal to 1 cup or approximately the size of a tennis ball)? 0-2 10/23/2023 Dental Answer Date Recorded Dental: Regular Dentist Yes 07/16/19 Employment Answer Date Recorded Employment status Retired 10/23/2023 Housing Stability Answer Date Recorded What is your living situation today? I have a [facility] place to live 10/23/2023 Education Answer Date Recorded What is the highest level of school you have completed or the highest degree you have received? 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 [address] [place] [address] documented as of this encounter Visit Diagnoses Not on filedocumented in this encounter
--- OUTSIDE RECORDS SUMMARY | 2024-05-13 07:50 | XMS_ITS | Encounter Summary ---
Author Organization [facility] Address [address] [place] [address] Care Team Providers Care Tutoring Clinician Name Role Phone Unavailable Primary Care Provider Unavailabl e Reason for Visit * Reason Onset Date Comments Urgent Appt Request 01/04/2024 Encounter Details Date Type Department Care Team (Latest Contact Info) Description 01/04/2024 Clinical Communication Department of Ophthalmology in [place], [place] [address] [phone] Kane Jones Jr., M.D. [address] [address] Urgent Appt Request Social History Tobacco Use Types Packs/Day Years Used Date Smoking Tobacco: Never Smokeless Tobacco: Never [facility] Utilities Answer Date Recorded In the past [...] 04/29/2022 How often do you attend chur or hinduism services? More than 4 times per year [...] medical care, and heating? Patient declined 12/30/2020 [facility] - Occupational [...] your living situation today? I have a [place] place to live 10/23/2023 Education Answer Date Recorded What is the highest level of school you have completed or the highest degree you have received? 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 [address] [place] [address] documented as of this encounter Visit Diagnoses Not on filedocumented in this encounter
--- OUTSIDE RECORDS SUMMARY | 2024-05-13 07:50 | XMS_ITS | Referral Summary ---
Author Organization [facility] Address [address] [place] [address] Care Team Providers Care Food Vendor Name Role Phone Unavailable Primary Care Provider Unavailabl e Source Comments Patient records contain information from all sites at [facility]. For routine questions regarding patient records, call [phone] during business hours, M-F 8:00 AM - 5:00 PM Central Time. Record requests for emergency care only can be directed to [phone] at any time.[facility] Encounters Date Type Department Care Team Description 03/21/2024 1:00 PM CDT Office Visit Department of Ophthalmology in [place], [place] [address] [place] [address] Erasmo Encinas M.D. Mulet, Miguel E Jr., M.D. Dry Eye Syndrome Bilateral (Primary Dx); Intraocular Lens Implant Status Post from Last 3 Months Allergies Active Allergy Reactions Criticality Noted Date Comments Codeine Other (see comments) 11/20/2006 Stomach spasms Medications * This document contains information received from the source organization and may not represent a complete record from that organization. polyethylene glycol 400 (BLINK GEL TEARS OPHT) Administer 1 drop into both eyes at bedtime. Active aspirin ([facility] Aspirin) [address] tablet Take by [...] a day. 1 Active miscellaneous medical supply misc CPAP machine for home use at pressure 10cm/H2O, nasal mask x1/3month with nasal pillows x 2/mo 0 Active TURMERIC ORAL Take 1 tablet by mouth daily. Active vit C,O-Sp-maczg-katerine tein-zeaxan (PreserVision AREDS-2) 250-90-40-1 mg per capsule [...] Disease NOS 06/26/2006 Hypertension Essential Primary 06/26/2006 Immunizations Name Administration Dates Next Due H1N1 All Forms 07/29/2009 HZV (ZOSTAVAX) 01/30/2007 Influenza, Unspecified 04/20/2009,2007,05/07/2007,06/05/2006, 5,05/11/2004,05/06/2003 PPSV23 05/11/2004 Td (Adult), adsorbed 04/09/2008 Social History Tobacco Use Types Packs/Day Years Used Date Smoking Tobacco: Never Smokeless Tobacco: Never [facility] Utilities Answer Date Recorded In the [...] often do you attend chur ch or voodoo services? More than 4 times per year [...] medical care, and heating? Patient declined 12/30/2020 [facility] of Occupat ional Health - Occupational [...] your living situation today? I have a [facility] place to live 10/23/2023 Education Answer Date Recorded What is the highest level of school you have completed or the highest degree you have received? 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 Gender Identity Female 04/29/2022 11:09 AM CDT Sexual Orientation Not on file Last Filed Vital Signs Vital Sign Reading Time Taken Comments Blood Pressure 130/80 06/01/2021 2:26 PM REGISTERED DIETITIAN Pulse - - Temperature - - Respiratory Rate - - Oxygen Saturation - - Inhaled Oxygen Concentration - - Weight 80.4 kg (177 lb 5.8 oz) 06/01/2021 2:26 P M REGISTERED DIETITIAN Height 160 cm (5' 3) 12/30/2020 9:13 AM CDT Body Mass Index 31.42 12/30/2020 9:13 AM CDT Plan of Treatment Upcoming Encounters Date Type Department Care Team (Late st Contact Info) Description 06/17/2024 11:15 AM REGISTERED DIETITIAN Office Visit Department of Ophthalmology in [place], [place] [address] [facility] [place] [phone] Kane Jones Jr., M.D. [address] [facility] [place] [phone] Insurance MEDICARE [facility]
== END 2024-05-13 07:48 | disposition home or self-care (01) ==
LOC: INJ CL 07:48
PROVIDERS: PCP Family Medicine; Visit Provider Family Medicine
DX: M54.16 Radiculopathy, lumbar region (principal)
CPT/HCPCS: 62323; J0702; Q9966

== ENCOUNTER 2025-02-03 07:37 | Outpatient (CLI) | payer MEDICARE, OTHER, SELFPAY | END 2025-02-03 07:38 | disposition home or self-care (01) | LOC: INJ CL 07:40 | PROVIDERS: PCP Family Medicine; Visit Provider Family Medicine | DX: M54.16 Radiculopathy, lumbar region (principal); M51.26 Other intervertebral disc displacement, lumbar region; M51.369 Other intervertebral disc degeneration, lumbar region without mention of lumbar back pain or lower extremity pain | CPT/HCPCS: 62323; Q9966 ==